=== PATIENT | female | born 1990 | race Caucasian/White ===

== ENCOUNTER 2016-09-17 11:59 | Emergency (ER) | payer MEDICAID ==
[~2016-09-17] VITALS: Ht 170.2 cm; Wt 106.2 kg
[~2016-09-17 11:59] MED LIST: IBUP-1222 PO; NITR100C56 PO; OXYC-302 PO; PREN1TAB25 PO
[2016-09-17] MEDS ORDERED: SODIUM CHLORIDE FLUSH 10ML SYR IVF ONE (13:00)
[2016-09-17] MEDS ORDERED: ONDANSETRON 2MG/ML, 2ML IVPush ONE (13:00)
[2016-09-17] MEDS ORDERED: MORPHINE SULFATE 4 MG/ML, 1ML IVPush PRN (13:00)
[2016-09-17 13:02] LABS: PATH.CAST-FLAG NOT PRESENT; SPERM-FLAG NOT PRESENT; SRC-FLAG NOT PRESENT; XTAL-FLAG NOT PRESENT; YLC-FLAG NOT PRESENT
[2016-09-17] MEDS ORDERED: MORPHINE SULFATE 4 MG/ML, 1ML ONE (13:21)
[2016-09-17] MEDS ORDERED: ONDANSETRON 2MG/ML, 2ML ONE (13:21)
[2016-09-17 14:14] LABS: HEMOGLOBIN 13.7 g/dL (11.7-16.4)
[2016-09-17 14:22] LABS: ASPARTATE AMINO TRANSFERASE 13 U/L (15-37); BLOOD UREA NITROGEN 14 mg/dL (7-18)
[2016-09-17 14:53] VITALS: BP 135/72
== END 2016-09-17 14:55 | disposition home or self-care (01) ==
LOC: ED 12:53
DX: R10.84 Generalized abdominal pain (principal); R11.2 Nausea with vomiting, unspecified; R19.7 Diarrhea, unspecified; Z90.49 Acquired absence of other specified parts of digestive tract
CPT/HCPCS: 36415; 76700; 80053; 81001; 83690; 84703; 85025; 87077; 87086; 96374; 96375; 99285; J2405

== ENCOUNTER 2019-06-23 15:10 | Emergency (ER) | payer MEDICAID ==
[~2019-06-23] VITALS: Ht 170.2 cm; Wt 110.4 kg
[2019-06-23 15:48] VITALS: BP 131/65
--- NOTE | 2019-06-23 17:44 | NUR ---
Jen thapa in [facility] - 06/23/19 at 1748 by ARMANDO FROM LOBBY TO ROOM AT THIS TIME
--- NOTE | 2019-06-23 17:45 | NUR ---
NO ANSWER IN LOBBY
--- NOTE | 2019-06-23 17:54 | NUR ---
NO ANSWER IN LOBBY AT THIS TIME
--- NOTE | 2019-06-23 18:12 | NUR ---
NO ANSWER IN LOBBY
== END 2019-06-23 18:15 | disposition left against medical advice (07) ==
LOC: ED 18:09
DX: R30.0 Dysuria (principal); R11.0 Nausea
CPT/HCPCS: 99281

== ENCOUNTER 2019-06-26 06:15 | Emergency (ER) | payer OTHER ==
[~2019-06-26] VITALS: Ht 170.2 cm; Wt 110.0 kg
--- NOTE | 2019-06-26 06:41 | NUR ---
Patient presents to ER c/o left flank pain radiating into abd. Patient states it started on Sunday and she was seen at urgent care. sent her to ER but the wait was long and she was unable to stay. Today the pain has increased. Patient has +N/V/D. Last time she vomited was this morning. Patient is in NAD. Respirations even and unlabored.
--- NOTE | 2019-06-26 06:47 | NUR ---
report received from lynn mendez.
[2019-06-26] MEDS ORDERED: ONDANSETRON 2MG/ML, 2ML IVPush ONE ×2 (07:00→08:30)
[2019-06-26] MEDS ORDERED: SODIUM CHLORIDE FLUSH 10ML SYR IVF ONE (07:00)
[2019-06-26] MEDS ORDERED: MORPHINE SULFATE 4 MG/ML, 1ML IVPush PRN (07:00)
[2019-06-26] MEDS ORDERED: MORPHINE SULFATE 4 MG/ML, 1ML ONE (07:03)
[2019-06-26] MEDS ORDERED: ONDANSETRON 2MG/ML, 2ML ONE ×2 (07:03→08:40)
[2019-06-26 07:15] LABS: BASOPHILS # (AUTO) 0.03 x10^3/uL (0-0.1); BASOPHILS % (AUTO) 0 % (0-1); EOSINOPHILS # (AUTO) 0.11 x10^3/uL (0-0.4); EOSINOPHILS % (AUTO) 1 % (1-7); LYMPHOCYTES # (AUTO) 1.63 x10^3/uL (1-3.4); LYMPHOCYTES % (AUTO) 22 % (22-44); MD NO; MEAN CORPUSCULAR HEMOGLOBIN 28.6 pg (27.0-34.8); MEAN CORPUSCULAR HGB CONC 33.1 g/dL (32.4-35.8); MEAN CORPUSCULAR VOLUME 86.4 fL (80-100); MEAN PLATELET VOLUME 8.3 fL (7.4-10.4); MONOCYTES # (AUTO) 0.52 x10^3/uL (0.2-0.8); MONOCYTES % (AUTO) 7 % (2-9); NEUTROPHILS # (AUTO) 5.25 x10^3/uL (1.8-6.8); NEUTROPHILS % (AUTO) 70 % (42-75); PLATELET COUNT 276 x10^3/uL (130-400); RED CELL DISTRIBUTION WIDTH 13.6 % (9.6-15.2)
[2019-06-26 07:16] LABS: MICROSCOPIC INDICATED
--- NOTE | 2019-06-26 07:22 | NUR ---
pt medicated per emar. pt tolerated well.
[2019-06-26 07:27] LABS: ALBUMIN 3.5 g/dL (3.4-5.0); ANION GAP 6 mmol/L (5-15); CALCIUM 8.3 mg/dL (8.5-10.1); CHLORIDE 110 mmol/L (98-107)
[2019-06-26 07:33] LABS: ALANINE AMINOTRANSFERASE 20 U/L (12-78); ALKALINE PHOSPHATASE 64 U/L (45-117); BILIRUBIN,TOTAL 0.4 mg/dL (0.2-1.0); TOTAL PROTEIN 7.4 g/dL (6.4-8.2)
[2019-06-26 07:37] LABS: CULTURE INDICATED? NO
[2019-06-26] MEDS ORDERED: METOCLOPRAMIDE 5 MG/ML, 2ML IVPush ONE (08:00)
[2019-06-26] MEDS ORDERED: FAMOTIDINE 20 MG/2 ML IVPush ONE (08:00)
--- NOTE | 2019-06-26 08:49 | NUR ---
pt to ct at this time.
--- NOTE | 2019-06-26 08:49 | NUR ---
pt medicated per emar. pt tolerated well.
--- NOTE | 2019-06-26 09:20 | NUR ---
pt back to room from ct at this time.
[2019-06-26 09:45] VITALS: BP 128/74
--- NOTE | 2019-06-26 10:00 | NUR ---
pt's pain level is 4/10 at this time. pt states" i don't have nausea anymore." pt's aox4. resps even and unlabored.
--- NOTE | 2019-06-26 10:44 | NUR ---
Patient given discharge instructions and they have confirmed that they understand the instructions. Patient ambulatory with steady gait.
== END 2019-06-26 10:45 | disposition home or self-care (01) ==
LOC: ED 10:18
DX: R10.32 Left lower quadrant pain (principal)
CPT/HCPCS: 36415; 74176; 80053; 81001; 83690; 84703; 85025; 96374; 96375; 96376; 99284; J2270; J2405; J2765; J3490